=== PATIENT | female | born 1985 | race Caucasian/White ===

== ENCOUNTER 2017-10-16 11:40 | Observation (INO) | payer OTHER ==
[2017-10-16 13:16] LABS: ABS Basophils 0 10^3/ul (0-0.2); ABS Eosinophils 0.1 10^3/ul (0-0.6); ABS Lymphocytes 1.6 10^3/ul (1.0-4.8); ABS Monocytes 0.7 10^3/ul (0-0.8); ABS Neutrophils 7.1 10^3/ul (1.5-7.7); ABS Nucleated RBC 0 10^3/ul; Eosinophil % 0.6 % (0-6); Hematocrit 40 % (35-47); Hemoglobin 13.6 g/dl (12.0-16.0); Lymphocyte % 17.2 % (25-47); Mean Corpuscular HGB Conc 34 g/dl (31-36); Mean Corpuscular Hemoglobin 31 pg (27-31); Mean Corpuscular Volume 89 fL (80-97); Mean Platelet Volume 9.2 um3 (7.4-10.4); Nucleated Red Blood Cells % 0; Platelet Count 232 10^3/ul (150-450); Red Blood Count 4.46 10^6/ul (4.00-5.40); Red Cell Distribution Width 13 % (10.5-15); White Blood Count 9.5 10^3/ul (3.5-10.8)
[2017-10-16 13:33] LABS: EGFR Non-African American 95.4 (>60)
[2017-10-16] MEDS ORDERED: Ketorolac INJ* 30 MG/ML 1 ML VIAL IV PUSH ONE (14:16)
[2017-10-16] MEDS ORDERED: Iohexol 300* (CONTRAST) 10 ML SDV IV ONE (16:22)
--- NOTE | 2017-10-16 16:58 | RAD ---
Indication: Right lower quadrant pain for 3 days. Contrast: Administered 88.3 ml of OMNIPAQUE 300 mg/ml CT of the abdomen and pelvis was performed after oral and IV contrast administration. Coronal and sagittal reconstructed images were obtained. Lung bases demonstrate no pleural fluid, nodules or masses. Heart is of normal size without evidence of pericardial. Liver is normal in size. No focal lesions or intrahepatic duct dilatation is noted. The spleen is normal in size. The pancreas demonstrates no mass or pancreatic ductal dilatation. Gallbladder demonstrates no calcified gallstones, pericholecystic fluid or wall thickening. The common duct is not dilated. No adrenal lesions are noted. The kidneys demonstrate symmetric nephrograms without hydronephrosis. No retroperitoneal adenopathy is noted. Aorta and inferior vena cava are grossly unremarkable. Small bowel demonstrates no abnormal dilatation. Contrast is noted in the right colon. There is marked thickening of the cecum. Mucosal thickening is noted. There is dilated appendix with an appendicolith noted measuring up to 14 mm. There is phlegmonous change adjacent to the appendix. No extraluminal air is noted. There may be adjacent inflammatory changes of the terminal ileum. The uterus and ovaries are unremarkable. There is stool throughout the colon. IMPRESSION: There is evidence of acute appendicitis marked phlegmonous change and mucosal thickening of the cecum and adjacent terminal ileum. No abscess collection is noted however.
--- NOTE | 2017-10-16 17:14 | ED ---
Abdominal Pain/Female - HPI Summary HPI Summary: Patient is an otherwise healthy 31-year-old female presenting to the ED from with CC of right lower abdominal pain 3 days. Pain is been intermittent, not worse or better with eating. Worse with lying flat and better with sitting forward. Denies any fevers, sweats, chills. She endorses decreased PO intake and states she is not hungry. Has had intermittent nausea, but no vomiting, diarrhea, constipation. Takes no medications and denies any allergies. 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 Denies any STD history. LMP 2 weeks ago. Denies any vaginal bleeding, urinary symptoms, back pain. History of left-sided ovarian cyst, recent transvaginal ultrasound shows no right-sided ovarian cyst. She states she has had this same RLQ pain several months ago, but this resolved on its own. - History of Current Complaint Chief Complaint: EDAbdPain Stated Complaint: ABD PAIN Time Seen by Provider: 10/16/17 13:11 Hx Obtained From: Patient Hx Last Menstrual Period: 10/06/17 ?: No Onset/Duration: Sudden Onset Timing: Constant Severity Initially: Moderate Severity Currently: Moderate Pain Intensity: 6 Pain Scale Used: 0-10 Numeric Location: Discrete At: RLQ Radiates: No Character: Sharp Aggravating Factor(s): Nothing Alleviating Factor(s): Nothing Associated Signs and Symptoms: Negative: Back Pain, Constipation, Blood in Stool , Decreased Appetite, Vaginal Bleeding, Vaginal Discharge, Nausea, Vomiting - Risk Factors Ectopic Risk Factor: Negative Ovarian Torsion Risk Factor: Negative Allergies/Adverse Reactions: Allergies Allergy/AdvReac Type Severity Reaction Status Date / Time No Known Allergies Allergy Verified 10/16/17 13:22 PMH/Surg Hx/FS Hx/Imm Hx Previously Healthy: Yes Endocrine/Hematology History: Denies: Hx Diabetes Cardiovascular History: Denies: Hx Hypertension History: Denies: Hx Renal Disease - Immunization History Hx Pertussis Vaccination: No Immunizations Up to Date: Yes Infectious Disease History: No Infectious Disease History: Denies: Traveled Outside the [place] in Last 30 Days - Family History Family History: Noncontributory - Social History Occupation: Employed Full-time Lives: With Family Alcohol Use: Occasionally Hx Substance Use: No Substance Use Type: Reports: None Hx Tobacco Use: No Smoking Status (MU): Never Smoked Tobacco Review of Systems Constitutional: Negative Negative: Fever, Chills, Fatigue, Skin Diaphoresis Negative: Palpitations, Chest Pain Negative: Shortness Of Breath, Cough Positive: Abdominal Pain. Negative: Vomiting, Diarrhea, Nausea Genitourinary: Negative Positive: no symptoms reported, see HPI. Negative: burning, dysuria, discharge , frequency Negative: Arthralgia, Myalgia Negative: Rash, Bruising Negative: Headache, Weakness, Numbness Psychological: Normal All Other Systems Reviewed And Are Negative: Yes Physical Exam Triage Information Reviewed: Yes Vital Signs On Initial Exam: Initial Vitals Temp Pulse Resp BP Pulse Ox 98.5 F 93 18 135/88 99 10/16/17 11:58 10/16/17 11:58 10/16/17 11:58 10/16/17 11:58 10/16/17 11:58 Vital Signs Reviewed: Yes Appearance: Positive: No Pain Distress, Well-Nourished Skin: Positive: Warm, Skin Color Reflects Adequate Perfusion Head/Face: Positive: Normal Head/Face Inspection Eyes: Positive: EOMI, LAMONT, Conjunctiva Clear Neck: Positive: Supple, Nontender Respiratory/Lung Sounds: Positive: Clear to Auscultation, Breath Sounds Present Cardiovascular: Positive: RRR, Pulses are Symmetrical in both Upper and Lower Extremities Abdomen Description: Positive: Soft, McBurney's Point Tenderness. Negative: Nontender, No Organomegaly, CVA Tenderness (R), CVA Tenderness (L), Distended, Guarding, Other: - + psoas; + obturator; - murphys Musculoskeletal: Positive: Normal, Strength/ROM Intact Neurological: Positive: Speech Normal Psychiatric: Positive: Normal, Affect/Mood Appropriate AVPU Assessment: Alert Diagnostics - Vital Signs Vital Signs Temp Pulse Resp BP Pulse Ox 10/16/17 11:58 98.5 F 93 18 135/88 99 - Laboratory Lab Results: Lab Results 10/16/17 10/16/17 10/16/17 Range/Units 12:57 12:57 12:57 WBC 9.5 (3.5-10.8) 10^3/ul RBC 4.46 (4.00-5.40) 10^6/ul Hgb 13.6 (12.0-16.0) g/dl Hct 40 (35-47) % MCV 89 (80-97) fL MCH 31 (27-31) pg MCHC 34 (31-36) g/dl RDW 13 (10.5-15) % Plt Count 232 (150-450) 10^3/ul MPV 9.2 (7.4-10.4) um3 Neut % (Auto) 74.1 (38-83) % Lymph % (Auto) 17.2 L (25-47) % Elk % (Auto) 7.8 H (0-7) % Eos % (Auto) 0.6 (0-6) % Baso % (Auto) 0.3 (0-2) % Absolute Neuts (auto) 7.1 (1.5-7.7) 10^3/ul Absolute Lymphs (auto) 1.6 (1.0-4.8) 10^3/ul Absolute Monos (auto) 0.7 (0-0.8) 10^3/ul Absolute Eos (auto) 0.1 (0-0.6) 10^3/ul Absolute Basos (auto) 0 (0-0.2) 10^3/ul Absolute Nucleated RBC 0 10^3/ul Nucleated RBC % 0 Sodium 140 (135-145) mmol/L Potassium 3.6 (3.5-5.0) mmol/L Chloride 105 (101-111) mmol/L Carbon Dioxide 27 (22-32) mmol/L Anion Gap 8 (2-11) mmol/L BUN 7 (6-24) mg/dL Creatinine 0.71 (0.51-0.95) mg/dL Est GFR ( Amer) 115.4 (>60) Est GFR (Non-Af Amer) 95.4 (>60) BUN/Creatinine Ratio 9.9 (8-20) Glucose 87 (70-100) mg/dL Lactic Acid 0.8 (0.5-2.0) mmol/L Calcium 9.3 (8.6-10.3) mg/dL Total Bilirubin 0.70 (0.2-1.0) mg/dL AST 12 L (13-39) U/L ALT 14 (7-52) U/L Alkaline Phosphatase 50 (34-104) U/L C-Reactive Protein 115.01 H (<8.01) mg/L Total Protein 7.4 (6.4-8.9) g/dL Albumin 4.5 (3.2-5.2) g/dL Globulin 2.9 (2-4) g/dL Albumin/Globulin Ratio 1.6 (1-3) Lipase 11 (11.0-82.0) U/L Result Diagrams: 10/16/17 12:57 10/16/17 12:57 Lab Statement: Any lab studies that have been ordered have been reviewed, and results considered in the medical decision making process. Abdominal Pain Fem Course/Dx - Course Course Of Treatment: Labs obtained which are WNL except for an elevated CRP. CT abdomen/pelvis shows evidence of acute appendicitis marked phlegmon change and mucosal thickening of the cecum and adjacent terminal ileum. No abscess collection is noted however. Discussed case with МАРИНА Suresh from surgery. Dr. Leong will agree to see patient and likely take to OR. She is given Toradol while in the ED for pain as she has declined all other pain medications - Diagnoses Provider Diagnoses: Appendicitis - Provider Notifications Discussed Care Of Patient With: Jose Armando Leong - Discussed with Wilder Swanson PA-C Instructed by Provider To: Admit As Inpatient Discharge - Sign-Out/Discharge Documenting (check all that apply): Patient Departure - Discharge Plan Condition: Stable Disposition: ADMITTED TO [facility] Referrals: Joanie Gerber MD [Primary Care Provider] - - Billing Disposition and Condition Condition: STABLE Disposition: Admitted to [facility]
[2017-10-16] MEDS ORDERED: Bupivacaine 0.25% W/EPI* 10 ML SDV ONE (17:23)
[2017-10-16] MEDS ORDERED: Bupivacaine 0.25% SDV PF* 10 ML VIAL INJ ONE (17:23)
[2017-10-16] MEDS ORDERED: Acetaminophen TAB* 325 MG PO PRN ×2 (17:30→22:52)
[2017-10-16] MEDS ORDERED: fentaNYL* 50 MCG/ML 2 ML VIAL (100 MCG VIAL) IV PRN (17:30)
[2017-10-16] MEDS ORDERED: DiMENhydriNATE IV* 50 MG/ML VIAL IV PUSH PRN (17:30)
[2017-10-16] MEDS ORDERED: Ondansetron INJ* 2 MG/ML VIAL IV PRN (17:30)
[2017-10-16] MEDS ORDERED: HYDROmorphone INJ1* 1 MG/ML SYRINGE IV PRN (17:30)
[2017-10-16] MEDS ORDERED: Buffered Lidocaine 0.9% SYRIN* 5 ML/SYR SYRINGE INTRADERM ONE (17:30)
[2017-10-16] MEDS ORDERED: Naloxone* 0.4 MG/ML 1 ML VIAL IV PRN (17:30)
[2017-10-16] MEDS ORDERED: PROCHLORPERAZINE INJ 5 MG/ML 2 ML VIAL IV PRN (17:30)
[2017-10-16] MEDS ORDERED: diPHENhydraMINE IV* 50 MG/ML 1 ml VIAL (BENADRYL) IV PRN (17:30)
[2017-10-16] MEDS ORDERED: Acetaminophen IV 1GM/100ML * 1,000 MG/100 ML VIAL IVPB PRN (17:30)
[2017-10-16] MEDS ORDERED: metroNIDAZOLE IV 500 MG/100ML* 500 MG/100 ML BAG IVPB ONE (17:34)
[2017-10-16] MEDS ORDERED: ceFAZolin 2 GM in NS PREMIX(*) 2 GM/100 ML BAG IVPB ONE (17:35)
[2017-10-16] MEDS ORDERED: fentaNYL* 50 MCG/ML 2 ML VIAL (100 MCG VIAL) ONE ×3 (17:38→20:39)
[2017-10-16] MEDS ORDERED: Famotidine IV* 10 MG/ML 2 ML (20 mg) ONE (17:39)
[2017-10-16] MEDS ORDERED: Midazolam* 1 MG/ML 2 ML VIAL (2 MG) ONE (17:39)
[2017-10-16] MEDS ORDERED: Propofol* 10 MG/ML 20 ML BTL IV PUSH ONE (17:39)
[2017-10-16] MEDS ORDERED: Dexamethasone IV* 4 MG/ML 1 ML (4 MG) ONE (17:39)
[2017-10-16] MEDS ORDERED: Mivacurium Chloride* 20 MG/10 ML VIAL IV ONE (17:39)
--- NOTE | 2017-10-16 18:06 | CONS ---
[facility] CONSULTATION REPORT: DATE OF CONSULT: 10/16/17 ATTENDING SURGEON: Dr. Jose Armando Leong. REASON FOR CONSULT: Right lower quadrant abdominal pain. HISTORY OF PRESENT ILLNESS: This is a generally healthy 31-year-old female who , beginning on 10/13/17, was experiencing some crampy abdominal pain. This came to localize in the right lower quadrant where it has remained since. She continued to have pain that waxed and waned over the past 2 days and was awakened with the pain early this morning. She denies fever, but has experienced chills. She denies nausea or vomiting, but has been anorexic. No diarrhea. Her last bowel movement, which was this morning, was soft, no blood per rectum. Her last solid food was this morning at 9 a.m. She has only received 1 dose of Toradol here in the ED and she states that her current pain level is about 3/10, down from a peak of 8/10. She did have 1 episode of somewhat similar pain previously about a year and a half ago. She states that a transvaginal ultrasound at that time was negative for ovarian cyst. There was some evidence of a possible prior cyst on the left. Her last menstrual period was 1 week ago. PAST MEDICAL HISTORY: Unremarkable for any significant medical problems. PAST SURGICAL HISTORY: She has not had any prior surgeries. MEDICATIONS: None. DRUG ALLERGIES: None. FAMILY HISTORY: Positive for her mother having had a DVT during postop period for back surgery. No additional family history of thromboembolic disease. No problems with general anesthesia or bleeding disorder. SOCIAL HISTORY: The patient denies use of tobacco. She drinks approximately 5 glasses of wine per week. She denies any other recreational drug use. REVIEW OF SYSTEMS: General: No recent constitutional symptoms or acute illnesses other than described in the HPI. HEENT: No problems reported. Specifically, no sore throat. Cardiovascular: No chest pain or palpitations. Respiratory: No chronic cough, no shortness of breath. : No dysuria, hematuria, or increased frequency. 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 No other problems reported. Endocrine: No diabetes or thyroid dysfunction. PHYSICAL EXAM: Vital Signs: Height 5 feet 8 inches, weight 145 pounds. Temperature 98.5, blood pressure 135/88, pulse 93, respirations 18, room air saturation 99%. General: Well-nourished, well-developed female, in no acute distress. She actually appears comfortable, sitting up on the stretcher. Skin : Warm and dry. No suspicious rashes or lesions noted. HEENT: Pupils equal, round, and reactive. EOMs intact. No conjunctival pallor. Oropharynx: Mucous membranes slightly dry. No intraoral lesions. Teeth in good repair. Neck: No lymphadenopathy, thyromegaly, or masses. Heart: Regular rate and rhythm. No murmur noted. Lungs: Clear to auscultation. No wheezes. Abdomen : Flat, nondistended. Bowel sounds present. Soft, but with moderate tenderness at McBurney's point where there is also some mild rebound and increased firmness and/or early guarding. There is no referred tenderness and psoas sign is equivocal as is obturator sign. Genitalia and Rectal: Not done. Extremities: No edema. Neurological: Grossly intact. LABORATORY DATA: Notable for a white blood cell count of 9500 without significant shift, hemoglobin 13.6. Chemistries notable for normal electrolytes , renal, and liver function tests. Her CRP is elevated at 115. Her lactic acid is normal at 0.8. ASSESSMENT AND PLAN: CT scan of the abdomen and pelvis with oral contrast was performed. I did not see the scan myself nor has it been read by the radiologist. However, Dr. Leong did just call me. He has looked at the scan and felt that it appeared to be consistent with acute appendicitis. Therefore, plan will be for laparoscopic appendectomy. The patient will be seen by Dr. Leong for confirmation of findings and plan, and I will relay this directly to the patient. BEVERLEY SILVA [id number]/[facility] #: [id number] KATY
--- NOTE | 2017-10-16 19:01 | BRIEFOPN ---
Brief Operative Note - Surgery Procedures: pre op dx: acute appendicitis post op Dx: same Procedure: laparoscopic appendectomy Surgeon:"mao Asst: None Anesth: James JACOBSON EBL: min IVF: 1000ccLR Spec: appendix- non-perforated
[2017-10-16] MEDS ORDERED: DiMENhydriNATE IV* 50 MG/ML VIAL ONE (20:05)
[2017-10-16] MEDS ORDERED: Acetaminophen IV 1GM/100ML * 100 ML ONE (20:05)
[2017-10-16] MEDS ORDERED: Ondansetron INJ* 2 MG/ML VIAL ONE (20:14)
[2017-10-16] MEDS ORDERED: PROCHLORPERAZINE INJ 5 MG/ML 2 ML VIAL ONE (21:23)
[2017-10-16] MEDS ORDERED: Scopolamine 1.5 mg* PATCH ONE (21:38)
[2017-10-16] MEDS ORDERED: Scopolamine 1.5 mg* PATCH TRANSDERM SCH (22:00)
[2017-10-16] MEDS ORDERED: oxyCODONE/Acetamin 5/325 MG* TAB PO PRN (22:51)
[2017-10-16] MEDS ORDERED: Morphine INJ* 2 MG/ML 1 ML SYRINGE (TWO MG - NEW SYRINGE VERSION) IV PRN (22:51)
[2017-10-16] MEDS ORDERED: Metoclopramide IV* 5 MG/ML 2 ML VIAL IV PRN (22:52)
[2017-10-16] MEDS: ZOSYN 3.375 GM Q6H - Intermittant 30 min Infusion IVPB SCH ×2 (23:57)
--- NOTE | 2017-10-17 01:08 | OP ---
CC: Dr. Joanie Gerber * DATE OF OPERATION: 10/16/17 - ROOM #348 DATE OF : 83 SURGEON: Jose Armando Leong MD. PRE-OP DIAGNOSIS: POST-OP DIAGNOSIS: OPERATIVE PROCEDURE: Laparoscopic appendectomy. INDICATIONS: Ms. Cummins is a 31-year-old female with no significant past medical history who presented with abdominal pain, and workup, including CT scan and labs, was consistent with acute appendicitis. I met the patient in the preoperative area and examined her after obtaining another history. I agreed with the diagnosis of acute appendicitis and recommended laparoscopic appendectomy, outlined the details of the procedure with concern of possibly finding a perforated appendix. I went over the potential risks of surgery and complications including bleeding, infection, hernia formation, abscess formation , need for open procedure, need for potential colectomy, or additional procedures. The patient's questions were answered and consent was signed. DESCRIPTION OF PROCEDURE: She was marked. She was brought to the operating room and placed on the operating table in a supine position. Preoperative antibiotics were given. Sequential devices were placed on bilateral lower extremities. General anesthesia was induced. The patient's abdomen was prepped and draped in a standard surgical fashion. A time-out was performed. Folds of the umbilicus were elevated anteriorly and a Veress needle was inserted into the abdominal cavity, which was then insufflated to a pressure of 15 mmHg, approximately 1.5 L of air went into what seemed to be the extraperitoneal space. For this reason, the Veress needle was removed and I converted to a cut down. An infraumbilical incision was made. This was deepened down to the anterior fascia, which was incised and entry into the abdominal cavity was made. A 12-mm trocar was inserted. Laparoscope was inserted through this. There was no evidence of injury from the trocar insertion or from the Veress needle. We could see air consistent with extraperitoneal air in the anterior abdominal wall. The inflamed appendix was quickly appreciated adhered to the abdominal wall at the right lower quadrant. We then placed two 5 mm trocars in the suprapubic and the left lower quadrant. Table was repositioned and the appendix was bluntly dissected off the anterior abdominal wall. We then took the lateral attachments with both electrocautery and scissors. We were then able to mobilize the ligament of Treitz off of the base of the appendix and obtained a window to the base of the appendix. Additional cautery was used to fully appreciate the site. The mesoappendix was then taken with a 45- mm scott LUIS ENRIQUE stapling device. This allowed the appendix, which was quite inflamed and curled over itself to be better brought into the midline. Once this was performed, additional mesenteric tissue was taken with the cautery and then we were at an area of the base of the appendix that was too healthy tissue. A 45 mm purple LUIS ENRIQUE stapler was fired across the base of the appendix taking some of the cecum off. We fully transected the appendix and placed in an endoscopic retrieval bag and placed this at the right upper quadrant. Review of the staple line showed no evidence of bleeding or enteric contents. The small bowel and terminal ileum appeared intact. Retro- peritoneum was intact and the table was repositioned back to neutral. Review of the pelvis showed scant amount of free fluid, but no evidence of pus. The appendix was then removed from the umbilical port site and the abdomen was allowed to collapse. Trocars removed under direct vision. The anterior fascia at the umbilical port site was reapproximated with a 0 Polysorb suture in a [id number] fashion and all three skin incisions were reapproximated with 4- 0 Monocryl subcuticular sutures. Steri-Strips and sterile dressing were applied. The patient tolerated the procedure well, was woken up in the OR, and transferred to the PACU. [id number]/[facility] #: [id number] KATY
[2017-10-17] MEDS: ZOSYN 3.375 GM Q6H - Intermittant 30 min Infusion IVPB SCH ×2 (05:25)
[2017-10-17 07:41] VITALS: BP 120/60
--- NOTE | 2017-10-17 10:02 | PN ---
Progress Note - Progress Note Date of Service: 10/17/17 Note: S: POD #1. Doing well this a.m. Not much pain. Adelia diet; no N/V. Has not req'd any analgesics since PACU. O: Vital Signs - 8 hr 10/17/17 10/17/17 10/17/17 02:47 04:41 07:28 Temperature 98.4 F 98.5 F 98.8 F Pulse Rate 78 87 65 Respiratory 16 16 16 Rate Blood Pressure 113/68 127/56 120/60 (mmHg) O2 Sat by Pulse 100 99 100 Oximetry 10/17/17 07:45 Temperature Pulse Rate Respiratory 16 Rate Blood Pressure (mmHg) O2 Sat by Pulse Oximetry Intake and Output Last 24 Hours 10/15/17 10/16/17 10/17/17 10/18/17 06:59 06:59 06:59 06:59 Intake Total 3109 Output Total 600 Balance 2509 Weight 145 lb Intake: IV Fluids 2709 LR 2559 NS 100ML, Flagyl 500MG 100 NS 50ML, Cefazolin 2G 50 Oral 400 Output: Urine 600 Other: Estimated Void Large # Voids 1 Heart: reg; mildly tachy LUngs: clear ant Abd: lap sites clean and dry under Tegaderm dsgs; soft; min incisional tenderness A: s/p lap appy for acute nonrupt'd appendicitis, doing well P: ok for d/c home; instructions reviewed
--- NOTE | 2017-10-17 15:43 | DS ---
CC: Dr. Gerber * DATE OF ADMISSION: 10/16/2017. DATE OF DISCHARGE: 10/17/2017. HISTORY OF PRESENT ILLNESS/HOSPITAL COURSE: Ms. Cummins is a 31-year-old female who was admitted to my service yesterday with the diagnosis of acute appendicitis. She went to the OR and underwent a laparoscopic appendectomy. Please see operative report for full details. In the postoperative period, the patient had significant nausea that was ultimately controlled, but by 11 o' clock the patient was still having some discomfort and the plan was for admission overnight. In the overnight period the patient did very well, was able to get some sleep, did not have any fevers, and overall feels well. PHYSICAL EXAMINATION ON THE DAY OF DISCHARGE: The patient was afebrile, the vital signs were stable. She was alert and oriented times three, in no apparent distress. Abdomen was soft, nondistended, nontender. Dressing was clean, dry, and intact. Extremities were within normal limits. PLAN: Discharge to home. Follow-up in the office. The patient was given a prescription for Percocet send to [facility]. She can resume all her other meds and diet, but I have asked her to stay away from heavy lifting over 30 pounds for three weeks. The patient is aware of this and discharge paperwork was drawn up. [id number]/[facility] #: [id number] MTDD
[2017-10-19] MEDS ORDERED: Scopolamine PATCH Remove* 1 NOTE MISC PATCH OFF SCH (22:00)
== END 2017-10-17 11:15 | disposition home or self-care (01) ==
LOC: ED 11:40 → OR 17:02 → SSU 22:49 → INTOOBSV 22:49
PROVIDERS: ADMIT Surgery; ATTEND Surgery
DX: K37 Unspecified appendicitis (principal); R10.31 Right lower quadrant pain
CPT/HCPCS: 36415; 74177; 80053; 83605; 83690; 85025; 86140; 88304; 99284; A9270-GY; C1776; G0378; J0690; J0780; J1100; J1240; J1885; J2250; J2405; J2543; J2704; J3010; J3490; Q9967

== ENCOUNTER 2019-01-29 07:59 | Emergency (ER) | payer BC ==
[2019-01-29 08:12] VITALS: BP 116/74
--- NOTE | 2019-01-29 08:39 | UC ---
Respiratory Complaint HPI - HPI Summary HPI Summary: 3 WEEKS OF URI SYMPTOMS INCLUDING COUGH AND CONGESTION. TODAY DEVELOPED RIGHT EAR PAIN AND SORE THROAT. HAS SUBJECTIVE LOW-GRADE FEVER OVERNIGHT WELL. NO NAUSEA/VOMITING. - History of Current Complaint Chief Complaint: UCGeneralIllness Stated Complaint: SORE THROAT Time Seen by Provider: 01/29/19 08:03 Hx Obtained From: Patient Hx Last Menstrual Period: 10/06/17 Onset/Duration: Gradual Onset, Lasting Weeks, Still Present Timing: Constant Severity Initially: Moderate Severity Currently: Moderate Pain Intensity: 7 Pain Scale Used: 0-10 Numeric Character: Cough: Nonproductive Aggravating Factors: Nothing Alleviating Factors: Nothing Associated Signs And Symptoms: Positive: Fever, URI, Nasal Congestion. Negative : Wheezing - Allergies/Home Medications Allergies/Adverse Reactions: Allergies Allergy/AdvReac Type Severity Reaction Status Date / Time No Known Allergies Allergy Verified 10/16/17 13:22 PMH/Surg Hx/FS Hx/Imm Hx Respiratory History: Asthma - Surgical History Surgical History: Yes Surgery Procedure, Year, and Place: Appendics - Family History Known Family History: Positive: Non-Contributory Family History: Noncontributory - Social History Alcohol Use: Rare Substance Use Type: None Smoking Status (MU): Never Smoked Tobacco - Immunization History Most Recent Influenza Vaccination: 2017 Most Recent Pneumonia Vaccination: does not recieve Review of Systems All Other Systems Reviewed And Are Negative: Yes Constitutional: Positive: Fever, Fatigue ENT: Positive: Sore Throat, Ear Ache, Nasal Discharge Respiratory: Positive: Cough Cardiovascular: Positive: Negative Gastrointestinal: Positive: Negative Physical Exam Triage Information Reviewed: Yes Appearance: Well-Appearing, No Pain Distress, Well-Nourished Vital Signs: Initial Vital Signs Temp 98.2 F 01/29/19 08:06 Pulse 85 01/29/19 08:06 Resp 18 01/29/19 08:06 BP 116/74 01/29/19 08:06 Pulse Ox 98 01/29/19 08:06 Vital Signs Reviewed: Yes Eyes: Positive: Conjunctiva Clear ENT: Positive: Hearing grossly normal, Pharynx normal, TMs normal Neck: Positive: Supple, Nontender, No Lymphadenopathy Respiratory Exam: Normal Cardiovascular Exam: Normal Abdomen Description: Positive: Soft Musculoskeletal: Positive: No Edema Neurological: Positive: Alert Psychological: Positive: Age Appropriate Behavior Skin: Negative: Rashes Respiratory Course/Dx - Differential Dx/Diagnosis Provider Diagnosis: Acute bronchitis Discharge ED - Sign-Out/Discharge Documenting (check all that apply): Patient Departure All imaging exams completed and their final reports reviewed: No Studies - Discharge Plan Condition: Stable Disposition: HOME Prescriptions: Albuterol HFA INHALER* [Ventolin HFA Inhaler*] 2 puff INH Q4H PRN #1 mdi PRN Reason: Shortness Of Breath Azithromycin 500 mg PO DAILY #5 tablet predniSONE TAB* [Deltasone 20 MG TAB*] 40 mg PO DAILY #10 tab Patient Education Materials: Acute Bronchitis (ED) Referrals: Yulisa Yeh MD [Primary Care Provider] - If Needed Additional Instructions: YOUR SYMPTOMS MAY BE VIRALLY MEDIATED BUT GIVEN THE LENGTH OF TIME YOU HAVE BEEN ILL WE WILL COVER YOU WITH ANTIBIOTICS. IF YOU START THE MEDICINE BE SURE TO TAKE IT FOR THE FULL COURSE. REST, HYDRATE, OTC MEDS NEEDED. WILL ALSO TREAT WITH PREDNISONE TO HELP WITH AIRWAY INFLAMMATION. SEEK FOLLOW-UP WITH YOUR PCP IF YOU ARE NOT IMPROVING OVER THE NEXT 1-2 WEEKS. USE OTC AFRIN FOR NASAL CONGESTION. 2 SPRAYS IN EACH NOSTRIL TWICE DAILY NEEDED. DO NOT USE FOR MORE THAN 3-4 DAYS IN A ROW TO PREVENT DEVELOPING REBOUND CONGESTION. - Billing Disposition and Condition Condition: STABLE Disposition: Home
== END 2019-01-29 08:50 | disposition home or self-care (01) ==
LOC: UCEAST 07:59
DX: J20.9 Acute bronchitis, unspecified (principal); J45.909 Unspecified asthma, uncomplicated; J02.9 Acute pharyngitis, unspecified; H92.01 Otalgia, right ear
CPT/HCPCS: 99212; G0463